=== PATIENT | male | born 1985 | race Two or more races ===

== ENCOUNTER → 2017-02-24 | Day surgery (SDC) | payer BC ==
[~2017-02-24] MED LIST: EXCEDRIN MIGRA1 EACH PO; LISINOPRIL10 MG PO
--- NOTE | ~2017-02-24 | OR ---
Unit #: [id number] #: [id number] Patient: LEONCIO ROMERO [id number] [address] [place], [place] [address] [id number] MR#: [id number] NAME: LEONCIO ROMERO ROOM: Date of Procedure: 02/24/2017 Admission Date: 02/24/2017 Surgeon: Davian Mckeon Jr., M.D. : 1985 Attending Physician: Davian Mckeon Jr., M.D. Primary Care Physician: Primary Care Physician No OPERATIVE REPORT INDICATION FOR PROCEDURE The patient is a 31-year-old Latin male, who recently presented to the office complaining of a nodular mass of the left upper anterior chest wall and the right upper back. It has been enlarging in size causing discomfort. He is brought in this time for excision of these under local anesthesia at his request. PREOPERATIVE DIAGNOSIS Nodular mass of the left chest wall and right upper back. POSTOPERATIVE DIAGNOSES Nodular mass of the left chest wall and right upper back, noting both of these appeared to be a sebaceous cyst, one in the left chest wall was approximately a 4 cm and one of the right upper back approximately 4 to 5 cm. ANESTHESIA 1% Xylocaine with epinephrine locally. PROCEDURE PERFORMED Excision of mass of left chest wall and right upper back. DESCRIPTION OF PROCEDURE The patient was positioned in the supine position. After being prepped and draped in routine fashion, he was anesthetized locally in the area of the nodular mass of the left anterior chest wall with 1% Xylocaine with epinephrine. An elliptical incision was made around the mass with it being carried down through the deeper subcutaneous tissue with a #10 blade scalpel. After the lesion was completely excised from the surrounding tissue, it was sent to pathology. Hemostasis was achieved with Bovie cautery and after total hemostasis was achieved, the deeper tissue approximated with interrupted 3-0 Vicryl sutures. Skin edges approximated with stainless-steel skin clips and skin stapling device. Sterile dressings were applied externally. The patient was then rotated in left lateral decubitus position and again prepped and draped in routine fashion for excision of the mass of the right upper back. He was locally anesthetized with 1% Xylocaine with epinephrine. An elliptical incision was made around the mass being totally excised from the surrounding tissue with a #10 blade scalpel down to the deeper subcutaneous tissue. After it was completely removed, hemostasis achieved with Bovie cautery and the deeper subcutaneous tissue approximated with interrupted 3-0 Vicryl Unit #: [id number] #: [id number] Patient: LEONCIO ROMERO. Skin edges approximated with stainless-steel skin clips and skin stapling device. Sterile dressings were applied externally. Estimated blood loss for both procedures were less than 20 mL. The patient received no IV fluids during the procedure. Sponges and instrument counts were correct x3. No drains were used. No complications. The patient was taken to the discharge area with stable vital signs for discharge in satisfactory condition. Dictated by... Davian Mckeon Jr., MSanju FLYNN/madelyn TD: 02/24/2017 19:33 JOB #: [id number] OPERATIVE REPORT Page 1 of 1 X Davian Mckeon MD X PROCEDURE OPERATIVE NOTE
== END | disposition home or self-care (01) ==
LOC: CSUR 06:55
DX: L72.0 Epidermal cyst (principal); F17.210 Nicotine dependence, cigarettes, uncomplicated; I10 Essential (primary) hypertension; G43.909 Migraine, unspecified, not intractable, without status migrainosus; E66.3 Overweight; Z68.34 Body mass index [BMI] 34.0-34.9, adult; Z79.899 Other long term (current) drug therapy; Z88.0 Allergy status to penicillin; Z90.49 Acquired absence of other specified parts of digestive tract; Z98.890 Other specified postprocedural states
CPT/HCPCS: 88304